=== PATIENT | female | born 1950 | race Caucasian/White ===

== ENCOUNTER 2019-01-14 08:12 | Emergency (ER) | payer OTHER ==
[2019-01-14] MEDS ORDERED: LET GEL TOPICAL 1 EA SYR TP ONE ×2 (08:17→09:04)
[2019-01-14] MEDS ORDERED: IBUPROFEN 600 MG TAB PO ONE (08:18)
[2019-01-14] MEDS ORDERED: SKIN ADHESIVE (DERMABOND) 1 EACH TP ONE (08:44)
--- NOTE | 2019-01-14 08:50 | EDPHY ---
H & P Time Seen by Provider: 01/14/19 08:17 HPI/ROS: HPI Right foot injury. 68-year-old female by private vehicle. 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 She reports that she had the edge of a wheelchair ramp on fold and strike the distal dorsal aspect of her right foot and specifically her right toes big toe through the 3rd toe. She complains of skin tears to this area and pain to these toes. She denies any other injury or complaint. ROS: Constitutional: No fever, no chills. No weakness. Musculoskeletal: No back pain. No neck pain. As above.. Skin: No rashes. Skin abrasions as above. Neurological: No focal weakness or altered sensation. Past medical history: SVT, cardiac ablation, celiac disease, tonsillectomy, hysterectomy, right knee surgery, seasonal affective disorder, selective IgA immunodeficiency. Social history: Nonsmoker, no alcohol. She is here by herself. She works as a nurse. Physical Exam: General Appearance: Alert, no distress. This patient is responding to questions appropriately and in full sentences. This patient appears well- hydrated and well-nourished. Eyes: Pupils equal and round no pallor or injection. No lid edema, erythema or injection. Right foot exam: Significant for a skin tear from the paronychial base of the big toe nail bed this involves the superficial epidermis and not the dermis. There is no suturable laceration. She has a small skin tear involving the dorsal distal 3rd toe. She has tenderness on palpation of the distal phalanx of the big toe. There is no evidence of open fracture. The right foot and all its digits are neurovascularly intact. There is no evidence of subungual hematoma. Neurological: Motor sensory function is grossly intact. Cranial nerves are normal. Gait is normal. Skin: Warm and dry, no rashes. As above. Musculoskeletal: Neck is supple and nontender. Extremities are symmetrical. All joints range without pain or impingement. Psychiatric: No agitation. No depression. Database: EKG: Imaging: Right foot x-ray series: Significant for a nondisplaced fracture of the distal phalanx right big toe and nondisplaced fracture of the middle phalanx of the 2nd toe. Interpreted by me. Procedures: Procedure: Laceration repair. Verbal consent was obtained from the patient. The skin tears on the dorsal distal right 1st and 2nd toe was anesthetized with LET. The wound was irrigated , draped and explored to its base with a gloved finger. There were no deep structures involved. No tendon injury was identified. No foreign body was identified. The wound was repaired with skin adhesive. The wound repair was tolerated well and there were no complications. The procedure was performed by myself. Emergency department course: Triage vital signs reviewed. She is moderately hypertensive. Vital signs are otherwise normal. After wound care as described above and review of x-rays, the wounds were appropriately cleansed and dressed. Followed by application of a rigid sole orthopedic postop shoe. She has been given 600 mg of ibuprofen in the emergency department. I discussed follow-up with Orthopedics. She has coding and reimbursement specialist she is work with in the past and she has an coding and reimbursement specialist that she has used as a workman's Comp physician. This is a workman' s Comp injury. She does feel comfortable going home. She does have crutches. We discussed crutch use and weight-bearing on the right foot as tolerated. Ibuprofen dosing was discussed. She also asked me to prescribe her something stronger for pain. I will prescribe her 10 [place] tablets. She understands the importance of orthopedic follow-up. Return to emergency department precautions were reviewed. All of her questions were answered. She was discharged from the emergency department in good condition. Differential Diagnosis: The differential diagnosis on this patient includes but is not limited to closed distal phalanx fracture of the right big toe, skin tears of the right 1 and 3 toes. Open fracture unlikely. This represents a partial list of diagnoses considered. These considerations are based on history, physical exam , past history, reassessment and diagnostic testing. Smoking Status: Never smoked Constitutional: Initial Vital Signs Heart Rate 87 01/14/19 08:34 Respiratory Rate 18 01/14/19 08:34 Blood Pressure 158/88 H 01/14/19 08:34 O2 Sat (%) 94 01/14/19 08:34 O2 Delivery Mode Room Air Allergies/Adverse Reactions: Penicillins Allergy (Severe, Verified 01/14/19 08:32) Anaphylaxis adhesive tape Allergy (Intermediate, Verified 01/14/19 08:32) Rash Latex, Natural Rubber Allergy (Unknown, Verified 01/14/19 08:32) Unknown Home Medications: Medication Instructions Recorded CALCIUM 09/26/16 Fish Oil 09/26/16 Multivitamin 09/26/16 Trazodone HCl 09/26/16 VITAMIN D 09/26/16 oxyCODONE/APAP 5/325 [Percocet 1 - 2 tab PO Q4H PRN #20 tab 09/26/16 5/325 (RX)] Hydrocodone/APAP 5/325 [[place] 1 - 2 tab PO Q4-6PRN PRN #10 tab 01/14/19 5/325 (*)] Prozac 20 MG (*) 01/14/19 Medical Decision Making - Diagnostics Imaging Results: Imaging Impressions Foot X-Ray 01/14/19 08:18 Impression: 1. Acute nondisplaced transverse fractures base of distal phalanx great toe 2. Acute nondisplaced transverse fracture middle phalanx 2nd toe. - Data Points Medications Given: Discontinued Medications Ibuprofen (Motrin) 600 mg PO EDNOW ONE Stop: 01/14/19 08:19 Last Admin: 01/14/19 08:28 Dose: 600 mg Tetracaine/Epinephrine/Lidocaine (Let Gel Topical) 1 ea TP EDNOW ONE Stop: 01/14/19 09:05 Last Admin: 01/14/19 09:29 Dose: 1 ea Departure - Departure Disposition: Home, Routine, Self-Care Clinical Impression: Contusion of right foot, Toe fracture, right Condition: Good Instructions: Toe Fracture (ED), Skin Tear (ED) Additional Instructions: Read and follow provided instructions. Follow-up with your coding and reimbursement specialist in 2-3 days for re-evaluation as discussed. Ibuprofen dosin mg every 6 hours with meals for the next 3 days only. Take only as needed for pain. Narcotic pain medication: 1-2 every 4-6 hours as needed for pain. Do not drive while on this medication. Return to the emergency department for worsening pain, swelling, discoloration, fever or other serious concerns. Keep right foot and rigid postop shoe when ambulating. Use crutches as discussed. You can remove the postop shoe and sleeping. Weight-bearing to right foot only as tolerated. Referrals: Lawrence Duffy MD [Medical Doctor] - As per Instructions Prescriptions: Hydrocodone/APAP 5/325 [[place] 5/325 (*)] 1 - 2 tab PO Q4-6PRN PRN #10 tab PRN Reason: Pain, Moderate
[2019-01-14 09:26] VITALS: BP 139/106
== END 2019-01-14 09:30 | disposition home or self-care (01) ==
LOC: CED 08:12
PROC: 0HQMXZZ Repair Right Foot Skin, External Approach (ICD-10-PCS; principal; 2019-01-14)
DX: S91.114A Laceration without foreign body of right lesser toe(s) without damage to nail, initial encounter (principal); S92.424A Nondisplaced fracture of distal phalanx of right great toe, initial encounter for closed fracture; S92.524A Nondisplaced fracture of middle phalanx of right lesser toe(s), initial encounter for closed fracture; W22.8XXA Striking against or struck by other objects, initial encounter; Y93.F2 Activity, caregiving, lifting; Y99.0 Civilian activity done for income or pay
CPT/HCPCS: 73630-PO; 99283-ER; L4386-ER